=== PATIENT | male | born 1975 | race Caucasian/White ===

== ENCOUNTER 2022-03-10 11:47 | Inpatient (IN) | payer BC, OTHER ==
[~2022-03-10] VITALS: Ht 172.3 cm; Wt 86.3 kg
[2022-03-10 12:03] LABS: BASOPHILS % (AUTO) 0 % (0-10); EOSINOPHILS % (AUTO) 0 % (0-10); HEMATOCRIT 40 % (40-54); LYMPHOCYTES # (AUTO) 0.7 10^3/uL (1.0-4.0); LYMPHOCYTES % (AUTO) 6 % (12-44); MEAN CORPUSCULAR HEMOGLOBIN 30 pg (25-34); MEAN CORPUSCULAR HGB CONC 35 g/dL (32-36); MEAN CORPUSCULAR VOLUME 85 fL (80-99); MEAN PLATELET VOLUME 11.2 fL (9.0-12.2); MONOCYTES # (AUTO) 0.9 10^3/uL (0.0-1.0); MONOCYTES % (AUTO) 8 % (0-12); NEUTROPHILS # (AUTO) 9.4 10^3/uL (1.8-7.8); NEUTROPHILS % (AUTO) 85 % (42-75); PLATELET COUNT 255 10^3/uL (130-400)
[2022-03-10 12:12] LABS: ALBUMIN 4.3 GM/DL (3.2-4.5); POTASSIUM 3.7 MMOL/L (3.6-5.0)
[2022-03-10 12:14] LABS: CALCIUM 8.9 MG/DL (8.5-10.1)
[2022-03-10 12:15] LABS: TOTAL PROTEIN 7.1 GM/DL (6.4-8.2)
[2022-03-10 12:18] LABS: CREATININE SERUM 1.21 MG/DL (0.60-1.30)
--- NOTE | 2022-03-10 12:18 | ED Abdominal Pain ---
General Chief Complaint: Abdominal/GI Problems Stated Complaint: ABD PAIN,N/V History of Present Illness Date Seen by Provider: Mar 10, 2022 Time Seen by Provider: 11:55 Initial Comments 46-year-old male from [place] presents with a 2-day history of abdominal pain, constipation and vomiting. 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 He has had no solid food intake since 03/08/2022. He was drinking water and Mountain Dew yesterday. The pain has gotten progressively worse. He has has a history of bowel obstruction in the past. He had a colonoscopy approximately 2 months ago with no abnormalities. He was given Zofran and started with IV fluids by EMS. He reports no nausea at the present time. He has had a previous appendectomy and history of diverticulitis. Medications: Methadone, metoprolol and amlodipine. Timing/Duration: 1-2 Days Severity/Quality: Moderate Location: Generalized Abdomen Radiation: No Radiation Modifying Factors: Improves With Resting Associated Symptoms: No Back Pain, No Chest Pain, No Diaphoresis, No Fever/Chills; Heartburn, Nausea/Vomiting, Swelling/Mass in Abdomen (distended and firm) Allergies and Home Medications Allergies Coded Allergies: No Known Drug Allergies (Unverified , 03/10/22) Patient Home Medication List Home Medication List Reviewed: Yes Review of Systems Review of Systems Constitutional: no symptoms reported, see HPI Respiratory: No Symptoms Reported, See HPI; Denies Cough Cardiovascular: No Symptoms Reported, See HPI; Denies Chest Pain Gastrointestinal: See HPI, Abdomen Distended, Abdominal Pain, Constipated; Denies Diarrhea; Nausea, Poor Appetite; Denies Poor Fluid Intake, Denies Rectal Bleeding; Vomiting Genitourinary: No Symptoms Reported, See HPI All Other Systems Reviewed Negative Unless Noted: Yes Past Fviaxch-Nbdrqs-Napnkw Hx Patient Social History Tobacco Use?: No Use of E-Cig and/or Vaping dev: No Substance use?: No Alcohol Use?: Yes Alcohol Frequency: Rarely Immunizations Up To Date Influenza Vaccine Up-to-Date: No; Not Current First/Initial COVID19 Vaccinat: 2020 Second COVID19 Vaccination Oumar: 2020 Third COVID19 Vaccination Date: N/A COVID19 Vaccine Computer Compositor: UNSURE, PT THINKS MODERNA Family Medical History Reviewed Nursing Family Hx Physical Exam Vital Signs Vital Signs - First Documented 03/10/22 11:48 Temp 37.0 Pulse 85 Resp 20 B/P (MAP) 134/93 (107) Pulse Ox 100 O2 Delivery Room Air Capillary Refill : Height/Weight/BMI Height: '" Weight: lbs. oz. kg; BMI Method: General Appearance: mild distress HEENT: PERRL/EOMI, normal ENT inspection, TMs normal, pharynx normal Respiratory: chest non-tender, lungs clear, normal breath sounds Cardiovascular: normal peripheral pulses, regular rate, rhythm; No no edema Gastrointestinal: normal bowel sounds, abnormal bowel sounds (Hypoactive), distended, guarding, tenderness; No hernia, No mass Back: normal inspection, no CVA tenderness, no vertebral tenderness Neurologic/Psychiatric: no motor/sensory deficits, alert, normal mood/affect, oriented x 3 Skin: normal color, warm/dry Progress/Results/Core Measures Results/Orders Lab Results Laboratory Tests Test 03/10/22 11:55 Range/Units White Blood Count 11.0 4.3-11.0 10^3/uL Red Blood Count 4.74 4.30-5.52 10^6/uL Hemoglobin 14.0 13.3-17.7 g/dL Hematocrit 40 40-54 % Mean Corpuscular Volume 85 80-99 fL Mean Corpuscular Hemoglobin 30 25-34 pg Mean Corpuscular Hemoglobin Concent 35 32-36 g/dL Red Cell Distribution Width 12.8 10.0-14.5 % Platelet Count 255 130-400 10^3/uL Mean Platelet Volume 11.2 9.0-12.2 fL Immature Granulocyte % (Auto) 0 % Neutrophils (%) (Auto) 85 H 42-75 % Lymphocytes (%) (Auto) 6 L 12-44 % Monocytes (%) (Auto) 8 0-12 % Eosinophils (%) (Auto) 0 0-10 % Basophils (%) (Auto) 0 0-10 % Neutrophils # (Auto) 9.4 H 1.8-7.8 10^3/uL Lymphocytes # (Auto) 0.7 L 1.0-4.0 10^3/uL Monocytes # (Auto) 0.9 0.0-1.0 10^3/uL Eosinophils # (Auto) 0.0 0.0-0.3 10^3/uL Basophils # (Auto) 0.0 0.0-0.1 10^3/uL Immature Granulocyte # (Auto) 0.0 0.0-0.1 10^3/uL Neutrophils % (Manual) 82 % Lymphocytes % (Manual) 6 % Monocytes % (Manual) 11 % Eosinophils % (Manual) 1 % Basophils % (Manual) 0 % Band Neutrophils 0 % Blood Morphology Comment NORMAL Sodium Level 136 135-145 MMOL/L Potassium Level 3.7 3.6-5.0 MMOL/L Chloride Level 98 98-107 MMOL/L Carbon Dioxide Level 21 21-32 MMOL/L Anion Gap 17 H 5-14 MMOL/L Blood Urea Nitrogen 20 H 7-18 MG/DL Creatinine 1.21 0.60-1.30 MG/DL Estimat Glomerular Filtration Rate 75 BUN/Creatinine Ratio 17 Glucose Level 156 H 70-105 MG/DL Calcium Level 8.9 8.5-10.1 MG/DL Corrected Calcium 8.7 8.5-10.1 MG/DL Magnesium Level 1.7 1.6-2.4 MG/DL Total Bilirubin 1.0 0.1-1.0 MG/DL Aspartate Amino Transf (AST/SGOT) 24 5-34 U/L Alanine Aminotransferase (ALT/SGPT) 43 0-55 U/L Alkaline Phosphatase 92 40-136 U/L C-Reactive Protein High Sensitivity 4.14 H 0.00-0.50 MG/DL Total Protein 7.1 6.4-8.2 GM/DL Albumin 4.3 3.2-4.5 GM/DL Amylase Level 66 25-125 U/L Lipase 19 8-78 U/L My Orders Orders - KULWANT BAIN Amylase (03/10/22 11:54) Cbc With Automated Diff (03/10/22 11:54) Comprehensive Metabolic Panel (03/10/22 11:54) Hs C Reactive Protein (03/10/22 11:54) Lipase (03/10/22 11:54) Magnesium (03/10/22 11:54) Ua Culture If Indicated (03/10/22 11:54) Ct Abdomen/Pelvis Wo (03/10/22 11:58) Manual Differential (03/10/22 11:55) Nothing By Mouth (03/10/22 Lunch) Ng Tube To Low Wall Suction (03/10/22 12:50) Ng Tube Insert & Assessment (03/10/22 12:50) Vital Signs/I&O 03/10/22 11:48 Temp 37.0 Pulse 85 Resp 20 B/P (MAP) 134/93 (107) Pulse Ox 100 O2 Delivery Room Air Progress Progress Note : Time: 11:55 Progress Note Patient seen and evaluated, will continue IV fluids and monitor symptoms. Labs and CT ordered. 1245 CT shows small bowel obstruction at site of previous anastomosis. Dr. Noble in emergency department, discussed with him agreed with recommendations for admission and NG. [address] Page, agreed with plan for admission to consult general surgery. 1330 complained of nausea, Zofran 4 mg IV. 1400 NG tube placed by RN, immediate return of thick cream colored mucous. Diagnostic Imaging Diagonstic Imaging: CT Plain Films/CT/US/NM/MRI: abdomen Comments NAME: WILIAN BARRETT [facility] REC#: [id number] PT STATUS: REG ER : 1975 PHYSICIAN: KULWANT BAIN ADMIT DATE: 03/10/22/ER Draft Date of Exam:03/10/22 CT ABDOMEN/PELVIS WO EXAMINATION: CT abdomen and pelvis without contrast. TECHNIQUE: Multiple contiguous axial images were obtained through the abdomen and pelvis without the use of intravenous contrast. All CT scans use one or more of the following dose optimizing techniques: Automated exposure control, MA and/or KvP adjustment based on patient size and exam type or iterative reconstruction. HISTORY: Abdominal distention and pain. COMPARISON: None available. FINDINGS: Limited views of the lower thorax are unremarkable. The liver is steatotic. No focal liver lesions are seen. There is no biliary ductal dilation. Gallbladder is normal. Pancreas is normal. Spleen is normal. Adrenal glands are normal. There are nonobstructing stones in the left kidney. No suspicious renal lesions. There is no hydronephrosis. Urinary bladder is normal. Small bowel is dilated with mesenteric stranding and edema. There is what is discrete transition at the anastomosis or prior right colon resection. No free air. No drainable fluid collection. There is atrophy of the right psoas muscle. Small amount of free fluid is present in the pelvis. No abdominal or pelvic lymphadenopathy. Aorta is normal in caliber without aneurysm. There are no suspicious osseous lesions. IMPRESSION: 1. Dilated small bowel with mesenteric stranding and edema. There is an abrupt transition at the anastomosis to the colon suggestive of a small bowel obstruction at the level of the anastomosis. Dictated on workstation # [id number] Reviewed: Reviewed by Me Departure Impression Primary Impression: Abdominal pain Qualified Codes: R10.84 - Generalized abdominal pain Additional Impressions: Vomiting Qualified Codes: R11.2 - Nausea with vomiting, unspecified Small bowel obstruction Disposition: ADMITTED INPATIENT Condition: Stable Admissions Decision to Admit/Date: Mar 10, 2022 Time/Decision to Admit Time: 12:50 KULWANT BAIN Mar 10, 2022 12:18
[2022-03-10 12:20] LABS: BAND NEUTROPHILS 0 %; BASOPHILS % (MANUAL) 0 %; EOSINOPHILS % (MANUAL) 1 %; LYMPHOCYTES % (MANUAL) 6 %; MONOCYTES % (MANUAL) 11 %; NEUTROPHILS % (MANUAL) 82 %; RBC MORPH NORMAL
[2022-03-10 12:21] LABS: MAGNESIUM 1.7 MG/DL (1.6-2.4)
--- NOTE | 2022-03-10 12:43 | Diagnostic Imaging Report ---
EXAMINATION: CT abdomen and pelvis without contrast. TECHNIQUE: Multiple contiguous axial images were obtained through the abdomen and pelvis without the use of intravenous contrast. All CT scans use one or more of the following dose optimizing techniques: Automated exposure control, MA and/or KvP adjustment based on patient size and exam type or iterative reconstruction. HISTORY: Abdominal distention and pain. COMPARISON: None available. FINDINGS: Limited views of the lower thorax are unremarkable. The liver is steatotic. No focal liver lesions are seen. There is no biliary ductal dilation. Gallbladder is normal. Pancreas is normal. Spleen is normal. Adrenal glands are normal. There are nonobstructing stones in the left kidney. No suspicious renal lesions. There is no hydronephrosis. Urinary bladder is normal. Small bowel is dilated with mesenteric stranding and edema. There is what is discrete transition at the anastomosis or prior right colon resection. No free air. No drainable fluid collection. There is atrophy of the right psoas muscle. Small amount of free fluid is present in the pelvis. No abdominal or pelvic lymphadenopathy. Aorta is normal in caliber without aneurysm. There are no suspicious osseous lesions. IMPRESSION: 1. Dilated small bowel with mesenteric stranding and edema. There is an abrupt transition at the anastomosis to the colon suggestive of a small bowel obstruction at the level of the anastomosis. Dictated by: Dictated on workstation # [id number]
[2022-03-10] MEDS ORDERED: NS IV 1000 ML 1,000 ML IV SCH (13:30)
[2022-03-10] MEDS ORDERED: ONDANSETRON 4 MG/2 ML (SDV) Z0FRAN IVP ONE (13:45)
[2022-03-10] MEDS ORDERED: fentaNYL INJ 100 MCG/2 ML AMP IVP STA (14:06)
--- NOTE | 2022-03-10 14:15 | History & Physical-Hospitalist ---
History of Present Illness HPI/Chief Complaint Pt is a 46yoCM with a PMH of bowel resection and bowel obstruction who presented to the ER due to abdominal pain. He has a history of bowel obstruction and this felt similar. States the pain started today and he knew he needed to be seen. He describes it as severe and reports he does not feel wella t all. Complaints of nausea as well. CT abd was done and revealed a small bowel obstruction and he is being admitted for further management. Source: patient Date Seen 03/10/22 Time Seen by a Provider: 14:10 Attending Physician No,Local Physician PCP Admitting Physician: Pedro Lance MD Attending Physician: Pedro Lance MD Referring Physician Date of Admission Mar 10, 2022 at 12:54 Home Medications & Allergies Home Medications Reviewed patient Home Medication Reconciliation performed by pharmacy medication reconciliations metallurgical or materials technician and/or nursing. Patients Allergies have been reviewed. Allergies Allergies Coded Allergies No Known Drug Allergies (Unverified03/10/22) Past Ygezylj-Gqbyog-Cdspuz Hx Patient Social History Employed/Student: employed Tobacco Use?: No Use of E-Cig and/or Vaping dev: No Substance use?: No Alcohol Use?: Yes Alcohol Frequency: Rarely Immunizations Up To Date First/Initial COVID19 Vaccinat: 2020 Second COVID19 Vaccination Oumar: 2020 Current Status Communicates: Verbally Primary Language: Tongan Preferred Spoken Language: Tongan Past Medical History Surgeries: Abdominal Hypertension On methadone Family Medical History Reviewed Nursing Family Hx No Pertinent Family Hx Review of Systems Constitutional: No chills, No fever EENTM: no symptoms reported Respiratory: no symptoms reported Cardiovascular: no symptoms reported Gastrointestinal: abdominal pain, constipation (last BM 3 days ago), nausea Genitourinary: no symptoms reported Musculoskeletal: no symptoms reported Skin: no symptoms reported Psychiatric/Neurological: No Symptoms Reported Physical Exam Physical Exam Vital Signs Vital Signs - First Documented 03/10/22 11:48 Temp 37.0 Pulse 85 Resp 20 B/P (MAP) 134/93 (107) Pulse Ox 100 O2 Delivery Room Air Capillary Refill : Less Than 3 Seconds Height, Weight, BMI Height: '" Weight: lbs. oz. kg; 26.00 BMI Method: General Appearance: WD/WN, Mild Distress (appears to not feel well) HEENT: PERRL/EOMI, Moist Mucous Membranes Neck: Normal Inspection, Supple Respiratory: Lungs Clear, No Respiratory Distress Cardiovascular: Regular Rate, Rhythm, No JVD, No Murmur Gastrointestinal: Soft, Abnormal Bowel Sounds (absent), Distended (mild), Tenderness (mild) Extremity: Normal Capillary Refill, No Calf Tenderness, No Pedal Edema Neurologic/Psychiatric: Alert, Oriented x3, Normal Mood/Affect Skin: Normal Color, Warm/Dry Results Results/Procedures Labs Laboratory Tests 03/10/22 11:55 Patient resulted labs reviewed. Imaging: Reviewed Imaging Report Imaging [facility] [place] NAME: WILIAN BARRETT [facility] REC#: [id number] PT STATUS: REG ER : 1975 PHYSICIAN: KULWANT BAIN ADMIT DATE: 03/10/22/ER Draft Date of Exam:03/10/22 CT ABDOMEN/PELVIS WO EXAMINATION: CT abdomen and pelvis without contrast. TECHNIQUE: Multiple contiguous axial images were obtained through the abdomen and pelvis without the use of intravenous contrast. All CT scans use one or more of the following dose optimizing techniques: Automated exposure control, MA and/or KvP adjustment based on patient size and exam type or iterative reconstruction. HISTORY: Abdominal distention and pain. COMPARISON: None available. FINDINGS: Limited views of the lower thorax are unremarkable. The liver is steatotic. No focal liver lesions are seen. There is no biliary ductal dilation. Gallbladder is normal. Pancreas is normal. Spleen is normal. Adrenal glands are normal. There are nonobstructing stones in the left kidney. No suspicious renal lesions. There is no hydronephrosis. Urinary bladder is normal. Small bowel is dilated with mesenteric stranding and edema. There is what is discrete transition at the anastomosis or prior right colon resection. No free air. No drainable fluid collection. There is atrophy of the right psoas muscle. Small amount of free fluid is present in the pelvis. No abdominal or pelvic lymphadenopathy. Aorta is normal in caliber without aneurysm. There are no suspicious osseous lesions. IMPRESSION: 1. Dilated small bowel with mesenteric stranding and edema. There is an abrupt transition at the anastomosis to the colon suggestive of a small bowel obstruction at the level of the anastomosis. Dictated on workstation # [id number] Dict: 03/10/22 1223 Trans: 03/10/22 1243 [id number] Interpreted by: SHAMIKA SIERRA MD Electronically signed by: Assessment/Plan Admission Diagnosis Small Bowel Obstruction Admission Status: Inpatient Order (span 2 midnights) Assessment and Plan Small Bowel Obstruction NGT to be place Surgery consulted, appreciate recs NPO IV fentanyl for pain IVF HTN BP well controlled,trend DVT ppx: [facility] PEDRO LANCE MD Mar 10, 2022 14:15
--- NOTE | 2022-03-10 14:30 | Consultation - Surgery ---
ILIAGEORGIE 03/10/22 1430: History of Present Illness History of Present Illness Patient Consulted On(dasha/time) 03/10/22 14:25 Date Seen by Provider: Mar 10, 2022 Time Seen by Provider: 14:20 History of Present Illness Pt is a 46 yo male who presented to ER today with 3 days of nausea and vomiting. He states that he knew something was "off" a few days ago but tried to wait it out. It started out two days ago with bloating, nausea and some abdominal pain. He has not had any solid food since 03/08 and has just been drinking water and mountain dew. He has been on the road for work for the last 15 days or so with minimal movement. He had an appendectomy in the early and an SBO that required laparotomy in 2013. He has not had any issues like this since then. He used to smoke but switched to chewing tobacco in 2015. Drinks occasionally. Pain is currently a 7/10 after receiving fentanyl, it was 8/10 at its worst when he arrived at ER. Allergies and Home Medications Allergies Coded Allergies: No Known Drug Allergies (Unverified , 03/10/22) Patient Home Medication List Amlodipine Besylate (Amlodipine Besylate) 10 Mg Tablet, 10 MG PO DAILY, (Reported) Entered as Reported by: Hattie Izquierdo on 03/10/221699 Last Action: New Order Duloxetine HCl (Cymbalta) 60 Mg Capsule.dr, 60 MG PO, (Reported) Entered as Reported by: Hattie Izquierdo on 03/10/221700 Last Action: New Order Methadone HCl (Methadone HCl) 40 Mg Tablet.dima, 90 MG PO DAILY, (Reported) Entered as Reported by: Hattie Izquierdo on 03/10/221702 Last Action: New Order Metoprolol Succinate (Toprol Xl) 100 Mg Tab.er.24h, 100 MG PO DAILY, (Reported) Entered as Reported by: Hattie Izquierdo on 03/10/221703 Last Action: New Order Omeprazole Magnesium (Prilosec) 10 Mg Suspdr.pkt, 20 MG PO BID, (Reported) Entered as Reported by: Hattie Izquierdo on 03/10/221703 Last Action: New Order Past Rmmxurd-Mxhids-Pfordg Hx Patient Social History Smoking Status: Current Everyday Smoker (switched from cigarette to chew in 2015) Type Used: Smokeless Tobacco Recent Hopitalizations: No Alcohol Use?: Yes Have you traveled recently?: Yes Surgeries Surgeries: Abdominal (Laparotomy for SBO 2013), Appendectomy Respiratory History of Respiratory Disorde: No Cardiovascular Cardiac Disorders: Hypertension Gastrointestinal Gastrointestinal Disorders: Obstructive Bowel, Diverticulosis Family Medical History Significant Family History: Diabetes Review of Systems-General Constitutional: No chills, No diaphoresis Respiratory: No short of breath Cardiovascular: No chest pain Gastrointestinal: abdominal pain (diffuse), constipation, loss of appetite, nausea, vomiting Physical Exam-General Problems Physical Exam Vital Signs Vital Signs - First Documented 03/10/22 11:48 Temp 37.0 Pulse 85 Resp 20 B/P (MAP) 134/93 (107) Pulse Ox 100 O2 Delivery Room Air Capillary Refill : Less Than 3 Seconds General Appearance: mild distress HEENT: PERRL/EOMI Neck: supple, normal inspection Respiratory: lungs clear, normal breath sounds, no respiratory distress, no accessory muscle use Cardiovascular: regular rate, rhythm, no edema, no murmur Gastrointestinal: abnormal bowel sounds (decreased in all 4 quadrants), guarding (RUQ, voluntary), tenderness (mainly upper quadrants bilaterally) Extremities: normal inspection, no pedal edema Neurologic/Psychiatric: alert, oriented x 3 Skin: normal color, warm/dry Lymphatic: no adenopathy Data Review Labs Laboratory Tests 03/10/22 11:55: White Blood Count 11.0, Red Blood Count 4.74, Hemoglobin 14.0, Hematocrit 40, Mean Corpuscular Volume 85, Mean Corpuscular Hemoglobin 30, Mean Corpuscular Hemoglobin Concent 35, Red Cell Distribution Width 12.8, Platelet Count 255, Mean Platelet Volume 11.2, Immature Granulocyte % (Auto) 0, Neutrophils (%) (Auto) 85H, Lymphocytes (%) (Auto) 6L, Monocytes (%) (Auto) 8, Eosinophils (%) (Auto) 0, Basophils (%) (Auto) 0, Neutrophils # (Auto) 9.4H, Lymphocytes # (Auto) 0.7L, Monocytes # (Auto) 0.9, Eosinophils # (Auto) 0.0, Basophils # (Auto) 0.0, Immature Granulocyte # (Auto) 0.0, Neutrophils % (Manual) 82, Lymphocytes % (Manual) 6, Monocytes % (Manual) 11, Eosinophils % (Manual) 1, Basophils % (Manual) 0, Band Neutrophils 0, Blood Morphology Comment NORMAL, Sodium Level 136, Potassium Level 3.7, Chloride Level 98, Carbon Dioxide Level 21, Anion Gap 17H, Blood Urea Nitrogen 20H, Creatinine 1.21, Estimat Glomerular Filtration Rate 75, BUN/Creatinine Ratio 17, Glucose Level 156H, Calcium Level 8.9, Corrected Calcium 8.7, Magnesium Level 1.7, Total Bilirubin 1.0, Aspartate Amino Transf (AST/SGOT) 24, Alanine Aminotransferase (ALT/SGPT) 43, Alkaline Phosphatase 92, C-Reactive Protein High Sensitivity 4.14H, Total Protein 7.1, Albumin 4.3, Amylase Level 66, Lipase 19 Assessment/Plan Assessment/Plan Assessment/Plan Small bowel obstruction -Patient with nausea/vomiting/abdominal pain and history of SBO. NG tube in place w/suction, IV fluids and pain medication started -Recommend pt stay NPO and we observe for now, no surgical intervention necessary at this time. DILIA JORDAN DO 03/10/22 1559: History of Present Illness History of Present Illness Time Seen by Provider: 13:50 History of Present Illness HPI per ER: 46-year-old male from [place] presents with a 2-day history of abdominal pain, constipation and vomiting. He is here driving a transport pilot car. He has had no solid food intake since 03/08/2022. He was drinking water and Mountain Dew yesterday. The pain has gotten progressively worse. He has has a history of bowel obstruction in the past. He had a colonoscopy approximately 2 months ago with no abnormalities. He was given Zofran and started with IV fluids by EMS. He reports no nausea at the present time. He has had a previous appendectomy and history of diverticulitis. Medications: Methadone, metoprolol and amlodipine. Timing/Duration: 1-2 Days Severity/Quality: Moderate Location: Generalized Abdomen Radiation: No Radiation Modifying Factors: Improves With Resting Associated Symptoms: No Back Pain, No Chest Pain, No Diaphoresis, No Fever/Chills; Heartburn, Nausea/Vomiting, Swelling/Mass in Abdomen (distended and firm) When I spoke to the pt in the ER he was in moderate to severe distress and did not want to talk. He stated he had bad appendicitis that ended up causing a resection of right colon. He had another episode of SBO and at that time may have has portion of small bowel removed. He hasn't had any problems in 4 years. He stated nothing made the pain better. Allergies and Home Medications Allergies Coded Allergies: No Known Drug Allergies (Unverified , 03/10/22) Patient Home Medication List Home Medication List Reviewed: Yes Amlodipine Besylate (Amlodipine Besylate) 10 Mg Tablet, 10 MG PO DAILY, (Reported) Entered as Reported by: Hattie Izquierdo on 03/10/221699 Last Action: New Order Duloxetine HCl (Cymbalta) 60 Mg Capsule.dr, 60 MG PO, (Reported) Entered as Reported by: Hattie Izquierdo on 03/10/221700 Last Action: New Order Methadone HCl (Methadone HCl) 40 Mg Tablet.dima, 90 MG PO DAILY, (Reported) Entered as Reported by: Hattie Izquierdo on 03/10/221702 Last Action: New Order Metoprolol Succinate (Toprol Xl) 100 Mg Tab.er.24h, 100 MG PO DAILY, (Reported) Entered as Reported by: Hattie Izquierdo on 03/10/221703 Last Action: New Order Omeprazole Magnesium (Prilosec) 10 Mg Suspdr.pkt, 20 MG PO BID, (Reported) Entered as Reported by: Hattie Izquierdo on 03/10/221703 Last Action: New Order Past Zmkaoim-Dsmhrs-Gpacoa Hx Patient Social History Smoking Status: Current Everyday Smoker (switched from cigarette to chew in 2015) Type Used: Smokeless Tobacco Recent Hopitalizations: No Have you traveled recently?: Yes Surgeries History of Surgeries: Yes Surgeries: Abdominal (Laparotomy for SBO 2013), Appendectomy, Bowel Surgery Respiratory History of Respiratory Disorde: No Cardiovascular History of Cardiac Disorders: Yes Neurological History of Neurological Disord: No Genitourinary History of Genitourinary Disor: No Gastrointestinal History of Gastrointestinal Di: Yes Gastrointestinal Disorders: Obstructive Bowel, Diverticulosis Musculoskeletal History of Musculoskeletal Dis: No Endocrine History of Endocrine Disorders: No HEENT Loss of Vision: Denies Hearing Impairment: Denies Cancer History of Cancer: No Psychosocial History of Psychiatric Problem: Yes Behavioral Health Disorders: Depression Family Medical History Significant Family History: Diabetes Review of Systems-General Constitutional: No chills, No diaphoresis; weakness EENTM: No blurred vision, No double vision, No mouth swelling, No epistaxis Respiratory: No cough, No phlegm, No short of breath Cardiovascular: No chest pain, No palpitations Gastrointestinal: abdominal pain (diffuse), constipation, loss of appetite, nausea, vomiting Genitourinary: No dysuria, No frequency, No hematuria Musculoskeletal: No joint pain, No joint swelling Skin: No change in color, No change in hair/nails Psychiatric/Neurological: Denies Anxiety; Depressed; Denies Seizure, Denies Tremors Physical Exam-General Problems Physical Exam General Appearance: WD/WN, moderate distress Eyes: Bilateral Eye PERRL, Bilateral Eye EOMI HEENT: pharynx normal; No scleral icterus (R), No scleral icterus (L) Neck: non-tender, supple Respiratory: lungs clear, normal breath sounds, no respiratory distress, no accessory muscle use Cardiovascular: regular rate, rhythm, no murmur Gastrointestinal: non tender, soft, no organomegaly, no pulsatile mass Rectal: deferred Back: no CVA tenderness, no vertebral tenderness Extremities: non-tender, no pedal edema Neurologic/Psychiatric: prime minister II-XII nml as tested, alert, oriented x 3 Skin: normal color, warm/dry Lymphatic: no adenopathy (neck, axilla or groin) Data Review Radiology Date of Exam:03/10/22 CT ABDOMEN/PELVIS WO EXAMINATION: CT abdomen and pelvis without contrast. TECHNIQUE: Multiple contiguous axial images were obtained through the abdomen and pelvis without the use of intravenous contrast. All CT scans use one or more of the following dose optimizing techniques: Automated exposure control, MA and/or KvP adjustment based on patient size and exam type or iterative reconstruction. HISTORY: Abdominal distention and pain. COMPARISON: None available. FINDINGS: Limited views of the lower thorax are unremarkable. The liver is steatotic. No focal liver lesions are seen. There is no biliary ductal dilation. Gallbladder is normal. Pancreas is normal. Spleen is normal. Adrenal glands are normal. There are nonobstructing stones in the left kidney. No suspicious renal lesions. There is no hydronephrosis. Urinary bladder is normal. Small bowel is dilated with mesenteric stranding and edema. There is what is discrete transition at the anastomosis or prior right colon resection. No free air. No drainable fluid collection. There is atrophy of the right psoas muscle. Small amount of free fluid is present in the pelvis. No abdominal or pelvic lymphadenopathy. Aorta is normal in caliber without aneurysm. There are no suspicious osseous lesions. IMPRESSION: 1. Dilated small bowel with mesenteric stranding and edema. There is an abrupt transition at the anastomosis to the colon suggestive of a small bowel obstruction at the level of the anastomosis. Dictated by: Dictated on workstation # [id number] Dict: 03/10/22 1223 Trans: 03/10/22 1421 [id number] Interpreted by: SHAMIKA SIERRA MD Electronically signed by: SHAMIKA SIERRA MD 03/10/22 1421 Assessment/Plan Assessment/Plan Assessment/Plan Small bowel obstruction -Patient with nausea/vomiting/abdominal pain and history of SBO. NG tube in place w/suction, IV fluids and pain medication started -Recommend pt stay NPO and we observe for now, no surgical intervention necessary at this time. Supervisory-Addendum Brief Verification & Attestation Participated in pt care: history, MDM, physical Personally performed: exam, history, MDM, supervision of care Care discussed with: Medical Student Procedures: n/a Verification and Attestation of Medical Student E/M Service A medical student performed and documented this service. I then reviewed and verified all information documented by the medical student and made modifications to such information, when appropriate. I personally performed a physical exam, medical decision making and then discussed any differences between the notes and made revisions as necessary to create one note. Dilia Jordan , 03/11/22 , 11:20 GEORGIE MORILLO Mar 10, 2022 14:30 DILIA JORDAN DO Mar 10, 2022 15:59
[2022-03-10 14:39] VITALS: BP 148/84
[2022-03-10] MEDS ORDERED: NS IV 1000 ML 1,000 ML ONE (15:00)
[2022-03-10] MEDS ORDERED: hydrALAZINE (APESOLINE) 20 MG/ML VIAL IV PRN (15:00)
[2022-03-10] MEDS ORDERED: NALOXONE 0.4 MG/ML 1 ML (NARCAN) VIAL IV PRN (15:00)
[2022-03-10] MEDS: NS IV 1000 ML 1,000 ML IV SCH ×3 (15:02→23:08)
[2022-03-10] MEDS: fentaNYL INJ 100 MCG/2 ML AMP IVP PRN ×2 (15:10→18:11)
[2022-03-10 16:22] VITALS: BP 148/84
[2022-03-10] MEDS ORDERED: AMLO-251 PO (17:00)
[2022-03-10] MEDS ORDERED: DULO60CA7 PO (17:01)
[2022-03-10] MEDS ORDERED: METH40TA2 PO (17:03)
[2022-03-10] MEDS ORDERED: OMEP10SU2 PO (17:04)
[2022-03-10] MEDS ORDERED: METO100T6 PO (17:04)
[2022-03-10] MEDS: KETOROLAC 30 MG/ML VIAL IVP PRN (18:11)
[2022-03-10] MEDS ORDERED: ONDANSETRON 4 MG/2 ML (SDV) Z0FRAN ONE (18:14)
[2022-03-10] MEDS: PANTOPRAZOLE 40 MG (PROTONIX) VIAL IV SCH (18:27)
[2022-03-10] MEDS ORDERED: ONDANSETRON 4 MG/2 ML (SDV) Z0FRAN IVP PRN (18:30)
[2022-03-10 20:13] VITALS: BP 132/82
[2022-03-10 23:05] VITALS: BP 129/76
[2022-03-11] MEDS: fentaNYL INJ 100 MCG/2 ML AMP IVP PRN ×3 (03:23→23:40)
[2022-03-11 03:31] VITALS: BP 128/82
[2022-03-11 06:49] LABS: HEMATOCRIT 36 % (40-54); HEMOGLOBIN 12.2 g/dL (13.3-17.7); MEAN CORPUSCULAR HEMOGLOBIN 29 pg (25-34); MEAN CORPUSCULAR HGB CONC 34 g/dL (32-36); MEAN CORPUSCULAR VOLUME 86 fL (80-99); MEAN PLATELET VOLUME 11.3 fL (9.0-12.2); PLATELET COUNT 204 10^3/uL (130-400); WHITE BLOOD COUNT 5.7 10^3/uL (4.3-11.0)
[2022-03-11 06:58] LABS: POTASSIUM 3.9 MMOL/L (3.6-5.0)
[2022-03-11 06:59] LABS: CALCIUM 8.3 MG/DL (8.5-10.1)
[2022-03-11 07:04] LABS: CREATININE SERUM 1.07 MG/DL (0.60-1.30)
[2022-03-11 07:40] VITALS: BP 119/74
--- NOTE | 2022-03-11 07:58 | Progress Note - Surgery ---
GEORGIE MORILLO 03/11/22 0758: Subjective Date Seen by a Provider: Mar 11, 2022 Subjective/Events-last exam Patient states that his pain is better today and he is less bloated. His nausea has also improved. He has been passing gas but states that he was passing some gas yesterday as well. Denies any sweats/chills/palpitations. Review of Systems General: No Chills, No Night Sweats Gastrointestinal: Nausea (improved), Constipation; No: Vomiting Objective Exam Vital Signs Date Time Temp Pulse Resp B/P (MAP) Pulse Ox O2 Delivery O2 Flow Rate FiO2 03/11/22 07:40 36.9 81 18 119/74 (89) 95 Room Air 03/11/22 03:31 36.6 74 18 128/82 (97) 98 Room Air 03/10/22 23:05 36.7 74 18 129/76 (93) 96 Room Air 03/10/22 20:13 36.5 76 18 132/82 (99) 96 Room Air 03/10/22 16:22 37.2 74 18 148/84 (105) 99 Room Air 03/10/22 14:58 37.2 03/10/22 14:43 98 Room Air 03/10/22 14:39 37.2 74 18 148/84 (105) 99 Room Air 03/10/22 14:19 86 18 150/90 99 Room Air 03/10/22 11:48 37.0 85 20 134/93 (107) 100 Room Air I & O 03/11/22 07:00 Intake Total 6500 ml Output Total 1775 ml Balance 4725 ml Capillary Refill : Less Than 3 Seconds General Appearance: WD/WN, Mild Distress (improved from yesterday) HEENT: PERRL/EOMI, Moist Mucous Membranes Neck: Normal Inspection, Supple Respiratory: Lungs Clear, No Respiratory Distress Cardiovascular: Regular Rate, Rhythm, No JVD, No Murmur Gastrointestinal: abnormal bowel sounds (decreased in all 4 quadrants), tenderness (mainly upper quadrants bilaterally, improved) Extremity: Normal Capillary Refill, No Calf Tenderness, No Pedal Edema Neurologic/Psychiatric: Alert, Oriented x3, Normal Mood/Affect Skin: Normal Color, Warm/Dry Results Lab Laboratory Tests 03/10/22 11:55: White Blood Count 11.0, Red Blood Count 4.74, Hemoglobin 14.0, Hematocrit 40, Mean Corpuscular Volume 85, Mean Corpuscular Hemoglobin 30, Mean Corpuscular Hemoglobin Concent 35, Red Cell Distribution Width 12.8, Platelet Count 255, Mean Platelet Volume 11.2, Immature Granulocyte % (Auto) 0, Neutrophils (%) (Auto) 85H, Lymphocytes (%) (Auto) 6L, Monocytes (%) (Auto) 8, Eosinophils (%) (Auto) 0, Basophils (%) (Auto) 0, Neutrophils # (Auto) 9.4H, Lymphocytes # (Auto) 0.7L, Monocytes # (Auto) 0.9, Eosinophils # (Auto) 0.0, Basophils # (Auto) 0.0, Immature Granulocyte # (Auto) 0.0, Neutrophils % (Manual) 82, Lymphocytes % (Manual) 6, Monocytes % (Manual) 11, Eosinophils % (Manual) 1, Basophils % (Manual) 0, Band Neutrophils 0, Blood Morphology Comment NORMAL, Sodium Level 136, Potassium Level 3.7, Chloride Level 98, Carbon Dioxide Level 21, Anion Gap 17H, Blood Urea Nitrogen 20H, Creatinine 1.21, Estimat Glomerular Filtration Rate 75, BUN/Creatinine Ratio 17, Glucose Level 156H, Calcium Level 8.9, Corrected Calcium 8.7, Magnesium Level 1.7, Total Bilirubin 1.0, Aspartate Amino Transf (AST/SGOT) 24, Alanine Aminotransferase (ALT/SGPT) 43, Alkaline Phosphatase 92, C-Reactive Protein High Sensitivity 4.14H, Total Protein 7.1, Albumin 4.3, Amylase Level 66, Lipase 19 03/11/22 06:32: White Blood Count 5.7, Red Blood Count 4.19L, Hemoglobin 12.2L, Hematocrit 36L, Mean Corpuscular Volume 86, Mean Corpuscular Hemoglobin 29, Mean Corpuscular Hemoglobin Concent 34, Red Cell Distribution Width 13.1, Platelet Count 204, Mean Platelet Volume 11.3, Sodium Level 140, Potassium Level 3.9, Chloride Level 104, Carbon Dioxide Level 24, Anion Gap 12, Blood Urea Nitrogen 19H, Creatinine 1.07, Estimat Glomerular Filtration Rate 87, BUN/Creatinine Ratio 18, Glucose Level 112H, Calcium Level 8.3L Assessment/Plan Assessment/Plan Assessment/Plan Nausea/vomiting Small bowel obstruction -Patient with nausea/vomiting/abdominal pain and history of SBO. NG tube in place w/suction (100ml collected in last 12hrs), continue IV fluids and pain management. Will advance patients diet to clears, clamp the NG tube and see how he does. ISAK NOBLE DO 03/11/22 1203: Subjective Time Seen by a Provider: 11:34 Subjective/Events-last exam Pt seen and examined, states he is feeling better today. Review of Systems General: No Chills, No Night Sweats Gastrointestinal: Nausea (improved), Constipation; No: Vomiting Objective Exam General Appearance: WD/WN, Mild Distress (improved from yesterday) HEENT: PERRL/EOMI, Moist Mucous Membranes, Other (NGT in place) Respiratory: Lungs Clear, Normal Breath Sounds, No Accessory Muscle Use, No Respiratory Distress Cardiovascular: Regular Rate, Rhythm, No Murmur Gastrointestinal: abnormal bowel sounds (decreased in all 4 quadrants), tenderness (mainly upper quadrants bilaterally, improved) Neurologic/Psychiatric: Alert, Oriented x3 Skin: Normal Color, Warm/Dry Assessment/Plan Assessment/Plan Assessment/Plan Partial Small bowel obstruction -Will clamp NG tube and start on sips of clears, continue IV fluids and pain management. Plan would be increase diet slowly, possibly d/c tube tomorrow and home if tolerating soft lunch. Supervisory-Addendum Brief Verification & Attestation Participated in pt care: history, MDM, physical Personally performed: exam, history, MDM, supervision of care Care discussed with: Medical Student Procedures: n/a Verification and Attestation of Medical Student E/M Service A medical student performed and documented this service. I then reviewed and verified all information documented by the medical student and made modifications to such information, when appropriate. I personally performed a physical exam, medical decision making and then discussed any differences bet ween the notes and made revisions as necessary to create one note. Isak Noble , 03/11/22 , 12:03 GEORGIE MORILLO Mar 11, 2022 07:58 ISAK NOBLE DO Mar 11, 2022 12:03
[2022-03-11] MEDS: PANTOPRAZOLE 40 MG (PROTONIX) VIAL IV SCH (08:23)
[2022-03-11] MEDS: NS IV 1000 ML 1,000 ML IV SCH ×2 (08:25→21:00)
[2022-03-11 11:22] VITALS: BP 138/82
--- NOTE | 2022-03-11 15:13 | Progress Note - Hospitalist ---
Subjective HPI/CC On Admission Date Seen by Provider: Mar 11, 2022 Time Seen by Provider: 10:40 Pt is a 46yoCM with a PMH of bowel resection and bowel obstruction who presented to the ER due to abdominal pain. He has a history of bowel obstruction and this felt similar. States the pain started today and he knew he needed to be seen. He describes it as severe and reports he does not feel wella t all. Complaints of nausea as well. CT abd was done and revealed a small bowel obstruction and he is being admitted for further management. Subjective/Events-last exam He is feeling better. He wants to try clear liquids. He denies pain. He denies nausea. He is passing some gas. Objective Exam Vital Signs Vital Signs Date Time Temp Pulse Resp B/P (MAP) Pulse Ox O2 Delivery O2 Flow Rate FiO2 03/11/22 11:22 37.0 71 18 138/82 (100) 97 Room Air Capillary Refill : Less Than 3 Seconds General Appearance: No Apparent Distress, WD/WN Respiratory: Lungs Clear, No Respiratory Distress Cardiovascular: Regular Rate, Rhythm, No Murmur Gastrointestinal: Normal Bowel Sounds, Soft, Tenderness Extremity: Normal Inspection, No Pedal Edema Neurologic/Psychiatric: Alert, Normal Mood/Affect Skin: Normal Color, Warm/Dry Results/Procedures Lab Laboratory Tests 03/11/22 06:32 Patient resulted labs reviewed. Imaging: Reviewed Imaging Report Assessment/Plan Assessment and Plan Assess & Plan/Chief Complaint Small Bowel Obstruction Surgery following Clamp NG Advance to clears Continue IV fluids Pain regimen HTN BP well controlled, trend DVT ppx: Lovenox Diagnosis/Problems Diagnosis/Problems (1) Small bowel obstruction Status: Acute ROBEL REDMOND MD Mar 11, 2022 15:13
[2022-03-11] MEDS ORDERED: OMEP20CA18 PO (15:16)
[2022-03-11] MEDS ORDERED: METH10SO PO (15:21)
[2022-03-11 16:33] VITALS: BP 135/81
[2022-03-11] MEDS: KETOROLAC 30 MG/ML VIAL IVP PRN (17:38)
[2022-03-11 19:59] VITALS: BP 130/82
[2022-03-12 00:38] VITALS: BP 132/78
[2022-03-12] MEDS ORDERED: METHADONE 10 MG (DOLOPHINE) TAB PO SCH (02:18)
[2022-03-12 03:57] VITALS: BP 141/83
[2022-03-12] MEDS: NS IV 1000 ML 1,000 ML IV SCH ×2 (04:58→17:02)
[2022-03-12 08:05] VITALS: BP 137/79
--- NOTE | 2022-03-12 08:43 | Progress Note - Surgery ---
ILIAGEORGIE 03/12/22 0843: Subjective Date Seen by a Provider: Mar 12, 2022 Time Seen by a Provider: 07:40 Subjective/Events-last exam Pt is resting comfortably in bed and looks well today. He has been drinking liquids without any nausea or vomiting. Review of Systems General: No Chills, No Night Sweats Pulmonary: No Cough Cardiovascular: No: Chest Pain, Palpitations Gastrointestinal: No: Nausea, Vomiting Objective Exam Vital Signs Date Time Temp Pulse Resp B/P (MAP) Pulse Ox O2 Delivery O2 Flow Rate FiO2 03/12/22 08:05 36.6 67 16 137/79 (98) 96 Room Air 03/12/22 03:57 37.3 65 18 141/83 (102) 97 Room Air 03/12/22 00:38 37.4 64 18 132/78 (96) 95 Room Air 03/11/22 19:59 36.8 69 18 130/82 (98) 97 Room Air 03/11/22 16:33 37.5 71 18 135/81 (99) 97 Room Air 03/11/22 11:22 37.0 71 18 138/82 (100) 97 Room Air I & O 03/12/22 07:00 Intake Total 4540 ml Output Total 2175 ml Balance 2365 ml Capillary Refill : Less Than 3 Seconds General Appearance: No Apparent Distress, WD/WN HEENT: PERRL/EOMI, Moist Mucous Membranes, Other (NGT in place) Neck: Non Tender, Supple Respiratory: Lungs Clear, No Respiratory Distress Cardiovascular: Regular Rate, Rhythm, No Murmur Gastrointestinal: normal bowel sounds, soft, tenderness (mainly upper quadrants bilaterally, improved) Extremity: Normal Capillary Refill, No Calf Tenderness, No Pedal Edema Neurologic/Psychiatric: Alert, Normal Mood/Affect Skin: Normal Color, Warm/Dry Lymphatic: No Adenopathy (anterior/posterior cervical, axillary, supraclavicular) Assessment/Plan Assessment/Plan Assessment/Plan Partial Small bowel obstruction -Pt tolerating liquids without issues, will advance to soft diet, pull NG tube and if pt does well following that he will be good to go from a surgical standpoint. ISAK NOBLE DO 03/12/22 1152: Subjective Time Seen by a Provider: 11:28 Subjective/Events-last exam PT seen and examined, states he feels ok "better than yesterday". He had small BM and would like to try increased diet. Review of Systems General: No Chills, No Night Sweats Pulmonary: No Cough Cardiovascular: No: Chest Pain, Palpitations Gastrointestinal: No: Nausea, Vomiting Objective Exam General Appearance: No Apparent Distress, WD/WN HEENT: PERRL/EOMI, Moist Mucous Membranes Respiratory: Lungs Clear, Normal Breath Sounds, No Accessory Muscle Use, No Respiratory Distress Cardiovascular: Regular Rate, Rhythm, No Murmur Gastrointestinal: soft, distended, tenderness (mainly upper quadrants bilaterally, improved) Extremity: No Pedal Edema Assessment/Plan Assessment/Plan Assessment/Plan Partial Small bowel obstruction -Pt tolerating liquids without issues, will advance to soft diet, pull NG tube and if pt does well following that he will be D/C'd home Supervisory-Addendum Brief Verification & Attestation Participated in pt care: history, MDM, physical Personally performed: exam, history, MDM, supervision of care Care discussed with: Medical Student Procedures: n/a Verification and Attestation of Medical Student E/M Service A medical student performed and documented this service. I then reviewed and verified all information documented by the medical student and made modifications to such information, when appropriate. I personally performed a physical exam, medical decision making and then discussed any differences between the notes and made revisions as necessary to create one note. Isak Noble , 03/12/22 , 11:52 GEORGIE MORILLO Mar 12, 2022 08:43 ISAK NOBLE DO Mar 12, 2022 11:52
[2022-03-12] MEDS: PANTOPRAZOLE 40 MG (PROTONIX) VIAL IV SCH (10:46)
[2022-03-12 11:35] VITALS: BP 141/85
[2022-03-12 15:23] VITALS: BP 137/86
--- NOTE | 2022-03-12 15:55 | Discharge Inst-Surgical ---
Discharge Inst-Surgical Depart Medication/Instructions New, Converted or Re-Newed RX: Other (resume home meds) Patient Instructions Follow up Appt: Make appointment for 1 week. [phone] Instructions: May shower in 24 hours,ok for tub bath or soaking. Use incentive spirometer at home as directed. No Smoking Symptoms to Report: Appetite Changes, Extremity Discoloration, Numbness/Tingling, Swelling Increased, Bleeding Excessive, Eyesight Changes, Pain Increased, Urine Color Change, Constipation(Persistent), Fever over 101 degree F, Pain/Pressure in chest, Urinating Difficulty, Cough Up/Vomit Blood, Heart Beat Irreg/Pounding, Pain/Pressure in jaw, Cramps in feet or legs, Lightheadedness, Pain/Pressure in shoulder, Diarrhea(Persistent), Memory Changes Suddenly, Questions/Concerns, Weight gain consecutive days, Dizziness/Fainting, Nausea/Vomiting, Shortness of Breath, Weight gain over 2 pounds If questions or concerns contact your physician Or seek help at emergency department. Activity Activity as Tolerated: Yes Driving Instructions: You May Drive Diet Discharge Diet: No Restrictions, Eat Small Frequent Meals If Any Problems/Questions/Issu: Contact Your Physician Skin/Wound Care Infection Signs and Symptoms: Increased Swelling, Temperature Above 101 F Bathing Instructions: DILIA Carcamo DO Mar 12, 2022 15:55
--- NOTE | 2022-03-12 20:29 | Discharge Summary ---
Discharge Summary Hospital Course Was the Problem List Reviewed?: Yes Problems/Dx: (1) Small bowel obstruction Status: Acute Hospital Course Date of Admission: Mar 10, 2022 at 12:54 Admission Diagnosis : SBO Family Physician/Provider: Krystle,Local Physician Date of Discharge: 03/12/22 Discharge Diagnosis: SBO Hospital Course: Kvng Monsalve is a 46 year old male who was admitted with small bowel obstruction. Surgery was consulted and assisted with his care. He was treated with conservative medical management. He had an NG tube placed. He was treated with NPO status, IV fluids, and IV pain medications. His obstruction resolved. His bowel function returned. His NG tube was clamped and his diet was advanced. He tolerated it well. The NG tube was removed. He was discharged home in stable condition. He should follow up with his PCP. Labs and Pending Lab Test: Home Meds Active Reported Methadone HCl 10 Mg/5 Ml Solution 90 Mg PO DAILY Omeprazole 20 Mg Capsule.dr 20 Mg PO DAILY Toprol Xl (Metoprolol Succinate) 100 Mg Tab.er.24h 100 Mg PO DAILY Amlodipine Besylate 10 Mg Tablet 10 Mg PO DAILY Assessment/Pt Instructions See instructions Discharge Planning: <30 minutes discharge planning Discharge Instructions Discharge Diet: No Restrictions, Eat Small Frequent Meals Activity as Tolerated: Yes Consultations Surgery Discharge Physical Examination Vital Signs Vital Signs Date Time Temp Pulse Resp B/P (MAP) Pulse Ox O2 Delivery O2 Flow Rate FiO2 03/12/22 15:23 37.5 62 16 137/86 (103) 96 Room Air General Appearance: No Apparent Distress, WD/WN Respiratory: Lungs Clear, No Respiratory Distress Cardiovascular: Regular Rate, Rhythm, No Murmur Gastrointestinal: Normal Bowel Sounds, Soft Extremity: Normal Inspection, No Pedal Edema Skin: Normal Color, Warm/Dry Neurologic/Psychiatric: Alert, Normal Mood/Affect Allergies: Coded Allergies: No Known Drug Allergies (Unverified , 03/10/22) Discharge Summary Date of Admission Mar 10, 2022 at 12:54 Date of Discharge Mar 12, 2022 at 17:20 Discharge Date: Mar 12, 2022 Discharge Time: 17:20 Admission Diagnosis Small Bowel Obstruction Consults/Procedures Consulations Surgery Discharge Diagnosis Small Bowel Obstruction (1) Small bowel obstruction Status: Acute ROBEL REDMOND MD Mar 12, 2022 20:29
== END 2022-03-12 17:20 | disposition home or self-care (01) | DRG 390 ==
LOC: ER 11:52 → 4TH 12:54 → OBSVTOIN 12:54
PROVIDERS: ADMIT Family Medicine; ATTEND Internal Medicine
DX: K56.600 Partial intestinal obstruction, unspecified as to cause (principal); K57.90 Diverticulosis of intestine, part unspecified, without perforation or abscess without bleeding; I10 Essential (primary) hypertension; F17.210 Nicotine dependence, cigarettes, uncomplicated; F32.A Depression, unspecified
CPT/HCPCS: 36415; 74176; 80048; 80053; 82150; 83690; 83735; 85007; 85025; 85027; 86141